=== PATIENT | male | born 1970 | race Hispanic/Latino ===

== ENCOUNTER 2020-06-30 15:59 | Emergency (ER) | payer SELFPAY ==
[2020-06-30] MEDS ORDERED: ONDANSETRON 4 MG/2 ML INJ IV ONE (17:57)
[2020-06-30] MEDS ORDERED: MORPHINE 4 MG/1 ML INJ IV ONE (17:57)
[2020-06-30] MEDS ORDERED: CLINDAMYCIN 600 MG/50 mL 600 MG/50 ML BAG IV ONE (17:57)
--- NOTE | 2020-06-30 18:09 | Emergency Department Report ---
ED General Adult HPI - General Chief complaint: Pain General Stated complaint: HEMMORIDS Time Seen by Provider: 06/30/20 17:19 Source: patient Mode of arrival: Ambulatory Limitations: No Limitations - History of Present Illness Initial comments: Patient is a 49-year-old male presents emergency room with complaints of rectal pain and swelling that began 4 days ago. He denies any rectal bleeding, hematochezia, hematemesis, melena,, fever, abdominal pain, nausea, vomiting, diarrhea. He denies ever having this in the past. He denies straining to have a bowel movement. He denies any past medical history or allergies to medications. - Related Data Previous Rx's Medication Instructions Recorded Last Taken Type Clindamycin [Clindamycin CAP] 450 mg PO TID 7 Days #63 capsule 06/30/20 Unknown Rx traMADoL [Ultram 50 MG tab] 50 mg PO Q6HR PRN #12 tablet 06/30/20 Unknown Rx Allergies Allergy/AdvReac Type Severity Reaction Status Date / Time No Known Allergies Allergy Unverified 06/30/20 16:14 ED Review of Systems ROS: Stated complaint: HEMMORIDS Other details as noted in HPI Comment: All other systems reviewed and negative ED Past Medical Hx - Past Medical History Previous Medical History?: Yes Additional medical history: hemorrhoids - Surgical History Past Surgical History?: No - Social History Smoking Status: Current Every Day Smoker Substance Use Type: Alcohol - Medications Home Medications: Home Medications Medication Instructions Recorded Confirmed Last Taken Type Clindamycin [Clindamycin CAP] 450 mg PO TID 7 Days #63 capsule 06/30/20 Unknown Rx traMADoL [Ultram 50 MG tab] 50 mg PO Q6HR PRN #12 tablet 06/30/20 Unknown Rx ED Physical Exam - General Limitations: No Limitations General appearance: alert, in no apparent distress - Head Head exam: Present: atraumatic, normocephalic - Eye Eye exam: Present: normal appearance - ENT ENT exam: Present: mucous membranes moist - Respiratory Respiratory exam: Present: normal lung sounds bilaterally. Absent: respiratory distress, wheezes, rales, rhonchi, stridor, chest wall tenderness, accessory muscle use, decreased breath sounds, prolonged expiratory - Cardiovascular Cardiovascular Exam: Present: regular rate, normal rhythm, normal heart sounds. Absent: systolic murmur, diastolic murmur, rubs, gallop - GI/Abdominal GI/Abdominal exam: Present: soft. Absent: distended, tenderness, guarding, rebound, rigid - Rectal Rectal exam: Present: other (glue mixer: Belinda, tech, there is a 4 cm area of induration present surrounding the rectum, no obvious area of fluctuance, there is a moderate amount of surrounding erythema, no drainage, no obvious opening, does not involve the perineum or scrotum) - Neurological Exam Neurological exam: Present: alert, oriented X3 - Psychiatric Psychiatric exam: Present: normal affect, normal mood - Skin Skin exam: Present: warm, dry ED Course Vital Signs 06/30/20 06/30/20 16:15 19:34 Temperature 99.0 F 98.3 F Pulse Rate 107 H 90 Respiratory 14 18 Rate Blood Pressure 138/104 Blood Pressure 123/72 [Left] O2 Sat by Pulse 96 98 Oximetry ED Medical Decision Making - Lab Data Result diagrams: 06/30/20 18:02 06/30/20 18:02 Lab Results 06/30/20 06/30/20 Range/Units 18:02 18:02 WBC 14.9 H (4.5-11.0) K/mm3 RBC 5.16 H (3.65-5.03) M/mm3 Hgb 16.4 H (11.8-15.2) gm/dl Hct 47.8 H (35.5-45.6) % MCV 93 (84-94) fl MCH 32 (28-32) pg MCHC 34 (32-34) % RDW 13.0 L (13.2-15.2) % Plt Count 248 (140-440) K/mm3 Lymph % (Auto) 16.7 (13.4-35.0) % [place] % (Auto) 10.7 H (0.0-7.3) % Eos % (Auto) 1.2 (0.0-4.3) % Baso % (Auto) 0.5 (0.0-1.8) % Lymph # (Auto) 2.5 (1.2-5.4) K/mm3 [place] # (Auto) 1.6 H (0.0-0.8) K/mm3 Eos # (Auto) 0.2 (0.0-0.4) K/mm3 Baso # (Auto) 0.1 (0.0-0.1) K/mm3 Seg Neutrophils % 70.9 H (40.0-70.0) % Seg Neutrophils # 10.5 H (1.8-7.7) K/mm3 Sodium 139 (137-145) mmol/L Potassium 3.9 (3.6-5.0) mmol/L Chloride 98.5 (98-107) mmol/L Carbon Dioxide 28 (22-30) mmol/L Anion Gap 16 mmol/L BUN 14 (9-20) mg/dL Creatinine 1.2 (0.8-1.3) mg/dL Estimated GFR > 60 ml/min BUN/Creatinine Ratio 12 % Glucose 81 (75-100) mg/dL Calcium 9.2 (8.4-10.2) mg/dL Total Bilirubin 0.40 (0.1-1.2) mg/dL AST 20 (5-40) units/L ALT 22 (7-56) units/L Alkaline Phosphatase 72 (35-129) units/L Total Protein 7.6 (6.3-8.2) g/dL Albumin 4.5 (3.9-5) g/dL Albumin/Globulin Ratio 1.5 % Vital Signs 06/30/20 06/30/20 16:15 19:34 Temperature 99.0 F 98.3 F Pulse Rate 107 H 90 Respiratory 14 18 Rate Blood Pressure 138/104 Blood Pressure 123/72 [Left] O2 Sat by Pulse 96 98 Oximetry - Radiology Data Radiology results: report reviewed CT ABDOMEN AND PELVIS WITH CONTRAST INDICATION / CLINICAL INFORMATION: rectal pain/edema/erythema, r/o abscess. TECHNIQUE: Axial CT images were obtained through the abdomen and pelvis after IV contrast. All CT scans at this location are performed using CT dose reduction [facility] by means of automated exposure control. COMPARISON: None available. FINDINGS: LOWER CHEST: No significant abnormality. LIVER: No significant abnormality. GALLBLADDER: No significant abnormality. BILE DUCTS: No significant abnormality. PANCREAS: No significant abnormality. SPLEEN: Small splenule is noted. ADRENALS: No significant abnormality. RIGHT KIDNEY / URETER: No significant abnormality. LEFT KIDNEY / URETER: No significant abnormality. STOMACH / SMALL BOWEL: No significant abnormality. COLON: No significant abnormality. No evidence of perirectal fluid collection. No evidence of rectal inflammatory changes or perirectal fat stranding. APPENDIX: No significant abnormality. PERITONEUM: No free fluid. No free air. No fluid collection. LYMPH NODES: No significant adenopathy. AORTA / ARTERIES: No significant abnormality. IVC / VEINS: No significant abnormality. URINARY BLADDER: No significant abnormality. REPRODUCTIVE ORGANS: No significant abnormality. ADDITIONAL FINDINGS: Small bilateral fat-containing inguinal hernias. Prominent bilateral inguinal lymph nodes measure within normal limits in size at 1.3 cm short axis. SKELETAL SYSTEM: No significant abnormality. IMPRESSION: 1. No significant abnormality. Specifically, no evidence of perirectal abscess or perirectal inflammatory changes. Signer Name: Vladimir Evans MD Signed: 06/30/2020 8:15 PM Workstation Name: [id number] Transcribed By: Dictated By: VLADIMIR EVANS Electronically Authenticated By: VLADIMIR EVANS Signed Date/Time: 06/30/202014 DD/ 06 TD/TT: - Medical Decision Making Patient is a 49-year-old male presents emergency room with complaints of rectal pain and swelling that began 4 days ago. He denies any rectal bleeding, hematochezia, hematemesis, melena,, fever, abdominal pain, nausea, vomiting, diarrhea. He denies ever having this in the past. He denies straining to have a bowel movement. He denies any past medical history or allergies to medications. Initial vitals with elevated heart rate and blood pressure which improved to normal upon repeat. Labs significant for elevated white blood cell count at 14.9, otherwise normal. on exam: glue mixer: césar Trevino, there is a 4 cm area of induration present surrounding the rectum, no obvious area of fluc tuance, there is a moderate amount of surrounding erythema, no drainage, no obvious opening, does not involve the perineum or scrotum. CT abdomen pelvis with IV contrast ordered to rule out perirectal abscess and shows 1. No significant abnormality. Specifically, no evidence of perirectal abscess or perirectal inflammatory changes. Most likely related to his cellulitis at this time, there is no drainable abscess at this time. Patient given pain medication and IV antibiotics while in the emergency department. Patient given prescription for tramadol and clindamycin. Advised patient that the area need to be reexamined within the next 2 days. Discussed very strict return precautions with patient. advised pt Please take medication as prescribed. Do not drive or operate machinery while taking pain medication. Please follow-up with a primary care doctor. The area needs to be reexamined within the next 2 days. Return to emergency room immediately for any new or worsening symptoms in cluding but not limited to worsening pain, worsening swelling, worsening redness, fever, vomiting, etc. - Differential Diagnosis abscess, cellulitis, perirectal abscess, hemorrhoids, cyst Critical care attestation.: If time is entered above; I have spent that time in minutes in the direct care of this critically ill patient, excluding procedure time. ED Disposition Clinical Impression: Perirectal cellulitis Disposition: DC- TO HOME OR SELFCARE Is pt being admited?: No Does the pt Need Aspirin: No Condition: Stable Instructions: Cellulitis (ED) Additional Instructions: Please take medication as prescribed. Do not drive or operate machinery while taking pain medication. Please follow-up with a primary care doctor. The area needs to be reexamined within the next 2 days. Return to emergency room immediately for any new or worsening symptoms including but not limited to worsening pain, worsening swelling, worsening redness, fever, vomiting, etc. Prescriptions: Clindamycin [Clindamycin CAP] 450 mg PO TID 7 Days #63 capsule traMADoL [Ultram 50 MG tab] 50 mg PO Q6HR PRN #12 tablet PRN Reason: Pain , Severe (7-10) Referrals: PRIMARY CAREMD [Primary Care Provider] - 2-3 Days VANITA FERNANDEZ MD [Staff Physician] - 2-3 Days [facility] [Provider Group] - 2-3 Days Time of Disposition: 20:22 Print Language: YI
[2020-06-30 18:20] LABS: Basophils # (Auto) 0.1 K/mm3 (0.0-0.1); Basophils % (Auto) 0.5 % (0.0-1.8); Eosinophils # (Auto) 0.2 K/mm3 (0.0-0.4); Eosinophils % (Auto) 1.2 % (0.0-4.3); Hematocrit 47.8 % (35.5-45.6); Hemoglobin 16.4 gm/dl (11.8-15.2); Lymphocytes # (Auto) 2.5 K/mm3 (1.2-5.4); Lymphocytes % (Auto) 16.7 % (13.4-35.0); Mean Corpuscular HGB Conc 34 % (32-34); Mean Corpuscular Volume 93 fl (84-94); Monocytes # (Auto) 1.6 K/mm3 (0.0-0.8); Monocytes % (Auto) 10.7 % (0.0-7.3); Platelet Count 248 K/mm3 (140-440); Red Blood Count 5.16 M/mm3 (3.65-5.03)
[2020-06-30 18:35] LABS: Alanine Aminotransferase 22 units/L (7-56); Albumin 4.5 g/dL (3.9-5); BUN/Creatinine Ratio 12; Blood Urea Nitrogen 14 mg/dL (9-20); Calcium 9.2 mg/dL (8.4-10.2); Hemolysis Index 17
[2020-06-30 19:35] VITALS: BP 123/72
--- NOTE | 2020-06-30 20:19 | Cat Scan Report ---
CT ABDOMEN AND PELVIS WITH CONTRAST INDICATION / CLINICAL INFORMATION: rectal pain/edema/erythema, r/o abscess. TECHNIQUE: Axial CT images were obtained through the abdomen and pelvis after IV contrast. All CT scans at this location are performed using CT dose reduction for [place] by means of automated exposure control. COMPARISON: None available. FINDINGS: LOWER CHEST: No significant abnormality. LIVER: No significant abnormality. GALLBLADDER: No significant abnormality. BILE DUCTS: No significant abnormality. PANCREAS: No significant abnormality. SPLEEN: Small splenule is noted. ADRENALS: No significant abnormality. RIGHT KIDNEY / URETER: No significant abnormality. LEFT KIDNEY / URETER: No significant abnormality. STOMACH / SMALL BOWEL: No significant abnormality. COLON: No significant abnormality. No evidence of perirectal fluid collection. No evidence of rectal inflammatory changes or perirectal fat stranding. APPENDIX: No significant abnormality. PERITONEUM: No free fluid. No free air. No fluid collection. LYMPH NODES: No significant adenopathy. AORTA / ARTERIES: No significant abnormality. IVC / VEINS: No significant abnormality. URINARY BLADDER: No significant abnormality. REPRODUCTIVE ORGANS: No significant abnormality. ADDITIONAL FINDINGS: Small bilateral fat-containing inguinal hernias. Prominent bilateral inguinal ly mph nodes measure within normal limits in size at 1.3 cm short axis. SKELETAL SYSTEM: No significant abnormality. IMPRESSION: 1. No significant abnormality. Specifically, no evidence of perirectal abscess or perirectal inflamma tory changes. Signer Name: Vladimir Fam MD Signed: 06/30/2020 8:15 PM Workstation Name: [id number]
== END 2020-06-30 20:30 | disposition home or self-care (01) ==
LOC: ED 15:59
DX: K61.1 Rectal abscess (principal); F17.200 Nicotine dependence, unspecified, uncomplicated; Z79.899 Other long term (current) drug therapy
CPT/HCPCS: 36415; 74177; 80053; 85025; 96365; 96375; 99284; J2270; J2405; Q9967

== ENCOUNTER 2020-07-02 09:31 | Emergency (ER) | payer SELFPAY ==
[2020-07-02 09:37] VITALS: BP 153/88
--- NOTE | 2020-07-02 10:49 | Emergency Department Report ---
ED General Adult HPI - General Chief complaint: Skin/Abscess/Foreign Body Stated complaint: CELLULITIS Time Seen by Provider: 07/02/20 10:26 Source: patient Mode of arrival: Ambulatory Limitations: No Limitations - History of Present Illness Initial comments: 49-year-old male presents to the emergency room for a follow-up on an abscess to his genitalia. Patient was seen here on Thursday with a CT scan that showed no abnormality no rectal abscess. Patient was placed on clindamycin and tramadol and was instructed to follow-up in 2 days with 1 of the providers that was on his discharge paperwork. Patient states that he call the offices and they have nothing available to the next week therefore he decided to be reevaluated here in the emergency room. Patient reports that the pain is worse with sitting. He does have report being compliant with his antibiotics and pain medicine. Patient denies any sits baths or warm compresses. Onset/Timin -: days(s) Location: genitals Severity scale (0 -10): 8 Quality: burning, stabbing, sharp Consistency: constant Improves with: none Worsens with: other (Sitting) Associated Symptoms: denies other symptoms Treatments Prior to Arrival: none - Related Data Previous Rx's Medication Instructions Recorded Last Taken Type Clindamycin [Clindamycin CAP] 450 mg PO TID 7 Days #63 capsule 06/30/20 Unknown Rx traMADoL [Ultram 50 MG tab] 50 mg PO Q6HR PRN #12 tablet 06/30/20 Unknown Rx Ibuprofen [Motrin 600 MG tab] 600 mg PO Q8H PRN #30 tablet 07/02/20 Unknown Rx Allergies Allergy/AdvReac Type Severity Reaction Status Date / Time No Known Allergies Allergy Unverified 06/30/20 16:14 ED Review of Systems ROS: Stated complaint: CELLULITIS Other details as noted in HPI ED Past Medical Hx - Past Medical History Previous Medical History?: No Additional medical history: hemorrhoids - Surgical History Past Surgical History?: No - Social History Smoking Status: Current Every Day Smoker Substance Use Type: Alcohol - Medications Home Medications: Home Medications Medication Instructions Recorded Confirmed Last Taken Type Clindamycin [Clindamycin CAP] 450 mg PO TID 7 Days #63 capsule 06/30/20 Unknown Rx traMADoL [Ultram 50 MG tab] 50 mg PO Q6HR PRN #12 tablet 06/30/20 Unknown Rx Ibuprofen [Motrin 600 MG tab] 600 mg PO Q8H PRN #30 tablet 07/02/20 Unknown Rx ED Physical Exam - General Limitations: No Limitations General appearance: alert, in no apparent distress - Head Head exam: Present: atraumatic, normocephalic - Eye Eye exam: Present: normal appearance - ENT ENT exam: Present: mucous membranes moist - Rectal Rectal exam: Present: mass, tenderness - External exam: Present: erythema, swelling - Extremities Exam Extremities exam: Present: normal inspection - Back Exam Back exam: Present: normal inspection - Neurological Exam Neurological exam: Present: alert, oriented X3, normal gait - Psychiatric Psychiatric exam: Present: normal affect, normal mood - Skin Skin exam: Present: warm, dry, intact, normal color. Absent: rash ED Course Vital Signs 07/02/20 09:35 Temperature 98.4 F Pulse Rate 98 H Respiratory 18 Rate Blood Pressure 153/88 O2 Sat by Pulse 97 Oximetry - I & D Medial Rectum Type of Procedure: Simple Blade Size: 11 I & D Procedure: betadine prep, sterile drapes applied, no gauze wick placed Progress: Patient tolerated well ED Medical Decision Making - Medical Decision Making 49-year-old male presents to the emergency room for a follow-up on an abscess to his genitalia. Patient was seen here on Thursday with a CT scan that showed no abnormality no rectal abscess. Patient was placed on clindamycin and tramadol and was instructed to follow-up in 2 days with 1 of the providers that was on his discharge paperwork. Patient states that he call the offices and t reagany have nothing available to the next week therefore he decided to be reevaluated here in the emergency room. Patient reports that the pain is worse with sitting. He does have report being compliant with his antibiotics and pain medicine. Patient denies any sits baths or warm compresses. Incision and drainage was performed. Copious amount of purulent foul greenish discharge was expressed. Patient tolerated procedure well. Instructed patient to continue with the antibiotics take pain medication that was prescribed to him on Thursday take the ibuprofen warm, compresses to the perianal area. Patient verbalized understanding Critical care attestation.: If time is entered above; I have spent that time in minutes in the direct care of this critically ill patient, excluding procedure time. ED Disposition Clinical Impression: Perirectal abscess Disposition: DC- TO HOME OR SELFCARE Is pt being admited?: No Does the pt Need Aspirin: No Condition: Stable Instructions: Abscess (ED) Additional Instructions: Complete antibiotics as prescribed continue with your pain medication. I have added ibuprofen that I recommend taking with the pain medicine that was given to you. Use warm compresses to your wound. Follow-up with your primary care provider. Prescriptions: Ibuprofen [Motrin 600 MG tab] 600 mg PO Q8H PRN #30 tablet PRN Reason: Pain Referrals: [facility] [Provider Group] - 3-5 Days
[2020-07-02] MEDS ORDERED: IBUPROFEN 600 MG TAB PO ONE (10:53)
[2020-07-02] MEDS ORDERED: LIDOCAINE-MPF (1%) 10 MG/1 ML VIAL 5 ML ONE (11:04)
== END 2020-07-02 11:58 | disposition home or self-care (01) ==
LOC: ED 09:31
DX: K61.1 Rectal abscess (principal); F17.200 Nicotine dependence, unspecified, uncomplicated; Z79.899 Other long term (current) drug therapy